=== PATIENT | female | born 1950 | race Two or more races ===

== ENCOUNTER 2018-05-25 09:12 | Emergency (ER) | payer OTHER, MEDICAID ==
[2018-05-25 09:51] LABS: PLATELET COUNT 213 10^3/uL (150-400)
--- NOTE | 2018-05-25 10:05 | EDPHY ---
H & P Stated Complaint: Generalized weakness, neck pain, somnulent Time Seen by Provider: 05/25/18 09:19 HPI/ROS: CHIEF COMPLAINT: Generalized weakness HISTORY OF PRESENT ILLNESS: The patient is referred to the ED from the dialysis unit where she complains of generalized weakness. In talking with the manager recruiting this is a chronic problem for the patient. She reports symptoms of excessive sleepiness. She denies any acute abdominal pain, fever or dysuria. The patient has underwent her regular dialysis. In reviewing her outpatient workup and clinic notes this is a chronic problem for the patient. She denies any history of fall or trauma. She denies acute headache. She denies additional acute complaints. There have been no medication changes. She denies any cough or congestion. REVIEW OF SYSTEMS: A comprehensive 10 point review of systems is otherwise negative aside from elements mentioned in the history of present illness. Source: Patient Exam Limitations: No limitations - Personal History Current Tetanus/Diphtheria Vaccine: Yes Current Tetanus Diphtheria and Acellular Pertussis (TDAP): Yes Tetanus Vaccine Date: UNK - Medical/Surgical History Hx Asthma: No Hx Chronic Respiratory Disease: No Hx Diabetes: Yes Hx Cardiac Disease: No Hx Renal Disease: Yes Hx Cirrhosis: No Hx Alcoholism: No Hx HIV/AIDS: No Hx Splenectomy or Spleen Trauma: No - Social History Smoking Status: Never smoked - Physical Exam Exam: General Appearance: Alert, no distress Eyes: Pupils equal and round no pallor or injection ENT, Mouth: Mucous membranes moist Respiratory: There are no retractions, lungs are clear to auscultation Cardiovascular: Regular rate and rhythm Gastrointestinal: Abdomen is soft and nontender, no masses, bowel sounds normal Neurological: A&O, normal motor function, normal sensory exam, normal cranial nerves Skin: Fistula noted in the forearm with palpable thrill Musculoskeletal: Neck is supple nontender Extremities: symmetrical, full range of motion Psychiatric: Patient is oriented X 3, there is no agitation Constitutional: Initial Vital Signs Temperature (C) 36.5 C 05/25/18 09:25 Heart Rate 67 05/25/18 09:25 Respiratory Rate 16 05/25/18 09:25 Blood Pressure 102/62 05/25/18 09:25 O2 Sat (%) 97 05/25/18 09:25 O2 Delivery Mode Nasal Cannula O2 (L/minute) 4 Allergies/Adverse Reactions: No Known Allergies Allergy (Verified 05/26/12 04:11) Home Medications: Medication Instructions Recorded Atorvastatin Calcium [Lipitor 20 20 mg PO DAILY 09/06/11 mg (*)] Sertraline HCl [Zoloft 25mg (*)] 100 mg PO DAILY 09/06/11 Aspirin [Aspirin 81mg (*)] 325 mg PO DAILY 11/16/11 Insulin Glargine [Lantus 100 40 units SC HS 05/26/12 UNITS/ML (*)] Insulin Lispro [humALOG LISPRO 100 0 unit SC TIDMEAL 05/26/12 units/ml (RX)] Labetalol HCl [Trandate 100 mg (*)] 300 mg PO BID 05/26/12 Lisinopril 40 mg PO HS 05/26/12 ACETAMINOPHEN 08/07/16 Amlodipine Besylate 10 mg 08/07/16 Novolog Flexpen 08/07/16 Sertraline HCl 08/07/16 Voltaren 08/07/16 Zolpidem Tartrate 08/07/16 Medical Decision Making ED Course/Re-evaluation: The patient presents to the ED for evaluation of months of intermittent fatigue. I find the patient to be no acute distress. She is neurologically intact. Her vital signs are stable. Her laboratory testing is unremarkable given her chronic renal failure. The patient is not anemic. She has no acute infectious symptoms. I do feel the patient can continue to work with her primary care provider for evaluation of her fatigue. She will be discharged home with customary aftercare instructions and return precautions. Differential Diagnosis: Differential diagnosis considered includes hyperkalemia, anemia, dehydration, metabolic derangement - Data Points Laboratory Results: Laboratory Results 05/25/18 09:30 05/25/18 09:30 05/25/18 05/25/18 09:30 09:30 WBC 8.35 10^3/uL 10^3/uL (3.80-9.50) RBC 3.58 10^6/uL L 10^6/uL (4.18-5.33) Hgb 10.0 g/dL L g/dL (12.6-16.3) Hct 31.9 % L % (38.0-47.0) MCV 89.1 fL fL (81.5-99.8) MCH 27.9 pg pg (27.9-34.1) MCHC 31.3 g/dL L g/dL (32.4-36.7) RDW 15.6 % H % (11.5-15.2) Plt Count 213 10^3/uL 10^3/uL (150-400) MPV 10.2 fL fL (8.7-11.7) Neut % (Auto) Pending Lymph % (Auto) Pending Hawkins % (Auto) Pending Eos % (Auto) Pending Baso % (Auto) Pending Nucleat RBC Rel Count Pending Absolute Neuts (auto) Pending Absolute Lymphs (auto) Pending Absolute Monos (auto) Pending Absolute Eos (auto) Pending Absolute Basos (auto) Pending Absolute Nucleated RBC Pending Immature Gran % Pending Immature Gran # Pending Platelet Estimate Pending Sodium 135 mEq/L mEq/L (135-145) Potassium 4.3 mEq/L mEq/L (3.3-5.0) Chloride 95 mEq/L L mEq/L (97-110) Carbon Dioxide 26 mEq/l mEq/l (22-31) Anion Gap 14 mEq/L mEq/L (8-16) BUN 55 mg/dL H mg/dL (7-23) Creatinine 7.0 mg/dL H mg/dL (0.6-1.0) Estimated GFR 6 Glucose 300 mg/dL H mg/dL (70-100) Calcium 8.4 mg/dL L mg/dL (8.5-10.4) Departure - Departure Disposition: Home, Routine, Self-Care Clinical Impression: Diabetes mellitus type 2, End stage renal failure on dialysis, Fatigue Condition: Good Instructions: Fatigue (ED) Additional Instructions: 1. The testing done in the emergency department today demonstrates no evidence of an obvious abnormality. 2. Please continue to work with your primary care provider for evaluation of your fatigue. 3. Return to the ED for fever, chest pain, difficulty breathing, acute pain or other concerns.
[2018-05-25 11:09] VITALS: BP 147/64
== END 2018-05-25 11:27 | disposition home or self-care (01) ==
LOC: EDUNIT#
DX: R53.83 Other fatigue (principal); N18.6 End stage renal disease; E11.22 Type 2 diabetes mellitus with diabetic chronic kidney disease; Z99.2 Dependence on renal dialysis